=== PATIENT | male | born 2000 | race Two or more races ===

== ENCOUNTER 2023-10-26 17:13 | Inpatient (IN) | payer MEDICAID, OTHER ==
[~2023-10-26] VITALS: Ht 167.6 cm; Wt 98.2 kg
[2023-10-26 18:53] LABS: Urine Epithelial Cast None Seen /hpf (<5)
[2023-10-26 19:10] LABS: Basophils # (auto) 0 10 ^3/uL (0-0.2); Basophils % (auto) 0.1 % (0.0-2.0); Eosinophils # (auto) 0 10 ^3/uL (0-0.8); Hematocrit 52.8 % (41.0-53.0); Hemoglobin 17.7 g/dL (13.5-17.5); Lymphocytes # (auto) 1.1 10 ^3/uL (0.4-5.4); Lymphocytes % (auto) 6.4 % (10.0-50.0); Mean Corpuscular Hemoglobin 28.2 pg (28.0-32.0); Mean Corpuscular Hgb Conc. 33.4 g/dL (32.0-36.0); Mean Corpuscular Volume 84.4 fL (80.0-100.0); Monocytes # (auto) 0.8 10 ^3/uL (0-1.3); Monocytes % (auto) 4.5 % (0.0-12.0); Neutrophils # (auto) 14.9 10 ^3/uL (1.6-8.6); Nucleated Red Blood Cells % 0.4 %; Red Blood Cells 6.26 10^6/uL (4.5-5.90); Red Cell Distribution Width 14.4 % (11.8-14.3); White Blood Cell 16.7 10^3/uL (4.4-10.8)
[2023-10-26 19:30] LABS: Alanine Aminotransferase 22 U/L (7-40); Albumin 4.9 g/dL (3.2-4.8); Alkaline Phosphatase 75 U/L (46-116); Amylase 50 U/L (30-118); Anion Gap 6 (5-15); Aspartate Aminotransferase 20 U/L (13-40); BUN/Creatinine Ratio 7.8 (10.0-20.0); Bilirubin, Total 1.4 mg/dL (0.2-1.0); Blood Urea Nitrogen 9 mg/dL (9-23); Calcium 9.5 mg/dL (8.7-10.4); Carbon Dioxide 26 mmol/L (20-30); Chloride 102 mmol/L (98-107); Glucose 104 mg/dL (74-106); Lipase 32 U/L (12-53); Potassium 4.2 mmol/L (3.5-5.1); Sodium 134 mmol/L (136-145); Total Protein 8.1 g/dL (5.7-8.2)
[2023-10-26 19:34] LABS: Urine Bacteria NONE SEEN /hpf (None Seen); Urine Blood Negative /uL (Negative); Urine Clarity Clear (Clear); Urine Color Yellow (Yellow); Urine Mucus FEW (None Seen); Urine Protein, UAD 1+ (Negative); Urine Specific Gravity 1.022 (1.001-1.035); Urine Urobilinogen Normal (Negative); Urine WBC 2 /hpf (0 - 3); Urine pH 6.5 (5.0-8.0)
[2023-10-26 19:39] LABS: Amphetamine Screen, Urine Neg (NEGATIVE); Barbiturate Scree,Urine Neg (NEGATIVE); Benzodiazephine Screen, Urine Neg (NEGATIVE); Cannabinoid Screen, Urine Neg (NEGATIVE); Cocaine Screen, Urine Pos (NEGATIVE); Opiate Scree,Urine Neg (NEGATIVE); Phencyclidine Screen, Urine Neg (NEGATIVE)
[2023-10-26] MEDS ORDERED: SODIUM CHLORIDE 0.9% 1,000 ML IV ONE (19:45)
[2023-10-26] MEDS ORDERED: ONDANSETRON HCL 4 MG/2 ML VIAL IV ONE (19:45)
[2023-10-26] MEDS ORDERED: MORPHINE SULFATE INJ 2 MG/ml SYRG IV ONE (19:45)
[2023-10-26] MEDS ORDERED: PIPERACILLIN-TAZOB 3.375GM 100 ML IV ONE ×2 (20:00→23:06)
[2023-10-26] MEDS: PIPERACILLIN-TAZOB 3.375GM 100 ML IV SCH (22:45)
[2023-10-26] MEDS ORDERED: D5W/LACTATED RINGERS 1,000 ML IV ONE (22:45)
[2023-10-26] MEDS ORDERED: DEXTROSE (50%) 50ML SYRG IV PRN (22:45)
[2023-10-26] MEDS ORDERED: MORPHINE SULFATE INJ 2 MG/ml SYRG ONE (23:06)
[2023-10-26] MEDS ORDERED: ONDANSETRON HCL 4 MG/2 ML VIAL ONE (23:06)
[2023-10-27] VITALS (9 sets, daily range): BP systolic 102–116; BP diastolic 58–72; PULSE 68–126; RESP 16–32; TEMP 98.2–98.7; O2SAT 97–100
[2023-10-27] MEDS: ACCU-CHEK COMFORT CURVE STRIP VI SCH ×4 (02:15→17:48)
[2023-10-27] MEDS: InsuLIN REG 1unit/0.01ml Soln (100units/ml) SC SCH ×4 (02:15→17:47)
[2023-10-27] MEDS: ACETAMINOPHEN 325 MG TAB PO PRN (03:02)
[2023-10-27] MEDS ORDERED: ACETAMINOPHEN 325 MG TAB PO ONE (03:02)
[2023-10-27] MEDS ORDERED: PIPERACILLIN-TAZOB 3.375GM 100 ML IV ONE ×4 (05:12→23:04)
[2023-10-27] MEDS: PIPERACILLIN-TAZOB 3.375GM 100 ML IV SCH ×4 (05:12→23:10)
[2023-10-27] MEDS: SODIUM CHLOR 0.9% PF (SALINE LOCK) 10ML VIAL/SYR IV SCH ×3 (06:00→23:07)
[2023-10-27 08:01] LABS: Hematocrit 44.6 % (41.0-53.0); Hemoglobin 14.8 g/dL (13.5-17.5); Mean Corpuscular Hemoglobin 27.9 pg (28.0-32.0); Mean Corpuscular Hgb Conc. 33.1 g/dL (32.0-36.0); Mean Corpuscular Volume 84.4 fL (80.0-100.0); Red Blood Cells 5.29 10^6/uL (4.5-5.90); Red Cell Distribution Width 14.5 % (11.8-14.3)
[2023-10-27 08:13] LABS: Basophils % (manual) 0 (0.0-2.0); Blast Cells 0; Eosinophils % (manual) 0 (0-7); Metamyelocytes % 0; Promyelocytes % 0; Reactive Lymphocytes 0
[2023-10-27] MEDS: SODIUM CHLORIDE 0.9% 1,000 ML IV SCH ×4 (08:15→23:07)
[2023-10-27] MEDS ORDERED: SODIUM CHLORIDE 0.9% 1,000 ML IV ONE ×2 (08:15)
[2023-10-27] MEDS ORDERED: SODIUM CHLORIDE 0.9% 1,000 ML IV SCH (08:15)
[2023-10-27 08:18] LABS: Alanine Aminotransferase 19 U/L (7-40); Alkaline Phosphatase 49 U/L (46-116); Anion Gap 8 (5-15); Aspartate Aminotransferase 15 U/L (13-40); BUN/Creatinine Ratio 8.9 (10.0-20.0); Blood Urea Nitrogen 11 mg/dL (9-23); Calcium 8.9 mg/dL (8.5-10.1); Carbon Dioxide 25 mmol/L (20-30); Chloride 101 mmol/L (98-107); Glucose 125 mg/dL (74-106); Potassium 3.8 mmol/L (3.5-5.1); Sodium 134 mmol/L (136-145)
[2023-10-27 08:19] LABS: Bilirubin, Total 1.6 mg/dL (0.2-1.0); Total Protein 6.5 g/dL (5.7-8.2)
[2023-10-27 08:43] LABS: Band Neutrophils % (manual) 21; Lymphocytes % (manual) 7 (10.0-50.0); Monocytes % (manual) 8 (0-12); Myelocytes % 2; Platelet Estimate Adequate
[2023-10-27] MEDS ORDERED: SUCCINYLCHOLINE CHLORIDE 20 MG/ML 10ML VIAL IV ONE (13:23)
[2023-10-27] MEDS ORDERED: ROCURONIUM 10MG/ML 10ML VIAL IV ONE (13:23)
[2023-10-27] MEDS ORDERED: fentaNYL CITRATE 100 MCG/2 ML VL ONE ×2 (13:54→15:08)
[2023-10-27] MEDS ORDERED: PROPOFOL 10 MG/ML 20 ML IV ONE (13:56)
[2023-10-27] MEDS ORDERED: DexAMETHasone SOD PHOS 10MG/1ML VIAL INJ ONE (14:07)
[2023-10-27] MEDS ORDERED: ONDANSETRON HCL 4 MG/2 ML VIAL ONE (14:07)
[2023-10-27] MEDS ORDERED: MEPERIDINE HCL (25 MG/ML) 1ML VIAL ONE ×2 (15:05→15:29)
[2023-10-27] MEDS ORDERED: SUGAMMADEX 200mg/2ml Vial (100MG/ML) IV ONE (15:23)
[2023-10-27] MEDS ORDERED: ROPIVACAINE 0.5% (5MG/ML) 20ML AMPULE IJ ONE (15:32)
[2023-10-27] MEDS ORDERED: ONDANSETRON HCL 4 MG/2 ML VIAL IV PRN (16:15)
[2023-10-27] MEDS ORDERED: HYDROmorphone HCL 2 MG/ML VL/or syr IV PRN (16:15)
[2023-10-27] MEDS ORDERED: MEPERIDINE HCL (25 MG/ML) 1ML VIAL IV PRN (16:15)
[2023-10-27] MEDS ORDERED: InsuLIN REG 1unit/0.01ml Soln (100units/ml) ONE (17:39)
[2023-10-28] VITALS (7 sets, daily range): BP systolic 107–127; BP diastolic 60–89; PULSE 76–94; RESP 16–21; TEMP 98.1–99.6; O2SAT 95–100
[2023-10-28] MEDS: ACCU-CHEK COMFORT CURVE STRIP VI SCH ×4 (01:05→17:52)
[2023-10-28] MEDS: InsuLIN REG 1unit/0.01ml Soln (100units/ml) SC SCH ×4 (01:05→17:55)
[2023-10-28] MEDS: SODIUM CHLORIDE 0.9% 1,000 ML IV SCH ×2 (01:45→11:46)
[2023-10-28] MEDS: PIPERACILLIN-TAZOB 3.375GM 100 ML IV SCH ×4 (04:13→22:58)
[2023-10-28] MEDS: SODIUM CHLOR 0.9% PF (SALINE LOCK) 10ML VIAL/SYR IV SCH ×3 (06:00→22:00)
[2023-10-28 06:37] LABS: Basophils # (auto) 0 10 ^3/uL (0-0.2); Basophils % (auto) 0.1 % (0.0-2.0); Eosinophils # (auto) 0 10 ^3/uL (0-0.8); Hematocrit 40.4 % (41.0-53.0); Hemoglobin 13.7 g/dL (13.5-17.5); Lymphocytes % (auto) 5.9 % (10.0-50.0); Mean Corpuscular Hemoglobin 28.8 pg (28.0-32.0); Mean Corpuscular Hgb Conc. 33.8 g/dL (32.0-36.0); Monocytes # (auto) 0.6 10 ^3/uL (0-1.3); Monocytes % (auto) 3.6 % (0.0-12.0); Neutrophils # (auto) 14.9 10 ^3/uL (1.6-8.6); Neutrophils % (auto) 90.4 % (37.0-80.0); Red Blood Cells 4.76 10^6/uL (4.5-5.90); Red Cell Distribution Width 14.5 % (11.8-14.3); White Blood Cell 16.5 10^3/uL (4.4-10.8)
[2023-10-28 06:43] LABS: Calcium 8.9 mg/dL (8.7-10.4); Chloride 106 mmol/L (98-107); Potassium 3.7 mmol/L (3.5-5.1); Sodium 137 mmol/L (136-145)
[2023-10-28 06:44] LABS: Anion Gap 6 (5-15); Carbon Dioxide 25 mmol/L (20-30)
[2023-10-28 06:49] LABS: BUN/Creatinine Ratio 9.1 (10.0-20.0); Blood Urea Nitrogen 10 mg/dL (9-23); Glucose 132 mg/dL (74-106)
[2023-10-29] MEDS: ACCU-CHEK COMFORT CURVE STRIP VI SCH ×2 (00:15→05:22)
[2023-10-29 05:00] VITALS: BP 121/83; PULSE 60; RESP 18; TEMP 98.1; O2SAT 98
[2023-10-29] MEDS: SODIUM CHLORIDE 0.9% 1,000 ML IV SCH (05:21)
[2023-10-29] MEDS: SODIUM CHLOR 0.9% PF (SALINE LOCK) 10ML VIAL/SYR IV SCH ×3 (05:22→22:48)
[2023-10-29] MEDS: InsuLIN REG 1unit/0.01ml Soln (100units/ml) SC SCH ×2 (05:22)
[2023-10-29] MEDS: PIPERACILLIN-TAZOB 3.375GM 100 ML IV SCH ×4 (06:30→22:49)
[2023-10-29 06:51] LABS: Anion Gap 6 (5-15); Carbon Dioxide 27 mmol/L (20-30); Chloride 108 mmol/L (98-107); Potassium 3.9 mmol/L (3.5-5.1); Sodium 141 mmol/L (136-145)
[2023-10-29 06:53] LABS: Calcium 9.1 mg/dL (8.5-10.1)
[2023-10-29 06:57] LABS: BUN/Creatinine Ratio 12.4 (10.0-20.0); Blood Urea Nitrogen 12 mg/dL (9-23); Glucose 93 mg/dL (74-106)
[2023-10-29 07:05] LABS: Basophils # (auto) 0 10 ^3/uL (0-0.2); Basophils % (auto) 0.1 % (0.0-2.0); Eosinophils # (auto) 0 10 ^3/uL (0-0.8); Hematocrit 37.9 % (41.0-53.0); Hemoglobin 12.5 g/dL (13.5-17.5); Lymphocytes # (auto) 1.8 10 ^3/uL (0.4-5.4); Mean Corpuscular Hemoglobin 28.2 pg (28.0-32.0); Mean Corpuscular Volume 85.4 fL (80.0-100.0); Monocytes % (auto) 6.2 % (0.0-12.0); Neutrophils # (auto) 12.5 10 ^3/uL (1.6-8.6); Neutrophils % (auto) 81.7 % (37.0-80.0); Red Blood Cells 4.44 10^6/uL (4.5-5.90); Red Cell Distribution Width 14.7 % (11.8-14.3); White Blood Cell 15.3 10^3/uL (4.4-10.8)
[2023-10-29 09:00] VITALS: BP 121/59; PULSE 57; RESP 18; TEMP 97.9; O2SAT 96
[2023-10-29 09:14] LABS: Hepatitis B Surface Antigen Negative (Negative)
[2023-10-29 09:36] LABS: Hepatitis C Antibody Negative (Negative)
[2023-10-29 13:00] VITALS: BP 117/66; PULSE 80; RESP 18; TEMP 97.5; O2SAT 96
[2023-10-29 17:00] VITALS: BP 113/69; PULSE 65; RESP 18; TEMP 98.1; O2SAT 97
[2023-10-29] MEDS: ACETAMINOPHEN 325 MG TAB PO PRN (20:08)
[2023-10-29 23:14] VITALS: BP 115/70; PULSE 89; RESP 18; TEMP 98.3; O2SAT 97
[2023-10-30] MEDS: HYDROcodone-ACET 5/325MG TAB PO PRN (03:45)
[2023-10-30] MEDS: SODIUM CHLOR 0.9% PF (SALINE LOCK) 10ML VIAL/SYR IV SCH ×3 (04:58→21:43)
[2023-10-30] MEDS: PIPERACILLIN-TAZOB 3.375GM 100 ML IV SCH ×4 (05:02→23:06)
[2023-10-30 05:14] VITALS: BP 120/75; PULSE 84; RESP 18; TEMP 97.9; O2SAT 97
[2023-10-30 06:30] LABS: Basophils # (auto) 0 10 ^3/uL (0-0.2); Eosinophils # (auto) 0 10 ^3/uL (0-0.8); Eosinophils % (auto) 0.1 % (0.0-7.0); Hematocrit 45.2 % (41.0-53.0); Lymphocytes # (auto) 2.2 10 ^3/uL (0.4-5.4); Lymphocytes % (auto) 18.5 % (10.0-50.0); Mean Corpuscular Hemoglobin 28.4 pg (28.0-32.0); Mean Corpuscular Hgb Conc. 33.2 g/dL (32.0-36.0); Mean Corpuscular Volume 85.4 fL (80.0-100.0); Monocytes # (auto) 1.3 10 ^3/uL (0-1.3); Monocytes % (auto) 10.6 % (0.0-12.0); Neutrophils # (auto) 8.6 10 ^3/uL (1.6-8.6); Neutrophils % (auto) 70.8 % (37.0-80.0); Red Blood Cells 5.29 10^6/uL (4.5-5.90); Red Cell Distribution Width 14.8 % (11.8-14.3); White Blood Cell 12.1 10^3/uL (4.4-10.8)
[2023-10-30 06:41] LABS: Chloride 104 mmol/L (98-107); Potassium 3.5 mmol/L (3.5-5.1); Sodium 137 mmol/L (136-145)
[2023-10-30 06:42] LABS: Anion Gap 8 (5-15); Carbon Dioxide 25 mmol/L (20-30)
[2023-10-30 06:47] LABS: Glucose 79 mg/dL (74-106)
[2023-10-30 06:48] LABS: BUN/Creatinine Ratio 7.6 (10.0-20.0); Blood Urea Nitrogen 9 mg/dL (9-23)
[2023-10-30 09:23] VITALS: BP 116/68; PULSE 93; RESP 18; TEMP 99.1; O2SAT 96
[2023-10-30] MEDS: ACETAMINOPHEN 325 MG TAB PO PRN ×2 (10:45→22:25)
[2023-10-30] MEDS ORDERED: IOHEXOL 300 MG/ML 100ML BOTTLE IJ ONE (11:50)
[2023-10-30 16:39] VITALS: BP 108/62; PULSE 100; RESP 16; TEMP 96.3; O2SAT 97
[2023-10-30 22:00] VITALS: BP 119/75; PULSE 52; RESP 18; TEMP 98.8; O2SAT 100
[2023-10-31] MEDS: ONDANSETRON HCL 4 MG/2 ML VIAL IV PRN ×3 (01:53→18:00)
[2023-10-31] MEDS: PIPERACILLIN-TAZOB 3.375GM 100 ML IV SCH (04:44)
[2023-10-31] MEDS: SODIUM CHLOR 0.9% PF (SALINE LOCK) 10ML VIAL/SYR IV SCH ×3 (04:47→21:38)
[2023-10-31 05:00] VITALS: BP 124/76; PULSE 98; RESP 17; TEMP 99.6; O2SAT 100
[2023-10-31 05:39] LABS: Basophils # (auto) 0 10 ^3/uL (0-0.2); Basophils % (auto) 0.1 % (0.0-2.0); Eosinophils # (auto) 0.2 10 ^3/uL (0-0.8); Eosinophils % (auto) 1.4 % (0.0-7.0); Hematocrit 43.7 % (41.0-53.0); Hemoglobin 14.5 g/dL (13.5-17.5); Lymphocytes # (auto) 2.4 10 ^3/uL (0.4-5.4); Lymphocytes % (auto) 13.9 % (10.0-50.0); Mean Corpuscular Hemoglobin 28.2 pg (28.0-32.0); Mean Corpuscular Hgb Conc. 33.2 g/dL (32.0-36.0); Mean Corpuscular Volume 84.8 fL (80.0-100.0); Monocytes # (auto) 1.9 10 ^3/uL (0-1.3); Monocytes % (auto) 10.9 % (0.0-12.0); Neutrophils # (auto) 12.6 10 ^3/uL (1.6-8.6); Neutrophils % (auto) 73.7 % (37.0-80.0); Red Blood Cells 5.16 10^6/uL (4.5-5.90); Red Cell Distribution Width 14.7 % (11.8-14.3); White Blood Cell 17.1 10^3/uL (4.4-10.8)
[2023-10-31 09:00] VITALS: BP 122/73; PULSE 94; RESP 16; TEMP 98.7; O2SAT 96
[2023-10-31] MEDS: MORPHINE SULFATE INJ 2 MG/ml SYRG IV PRN ×2 (11:51→18:01)
[2023-10-31 13:19] VITALS: BP 132/76; PULSE 95; RESP 16; TEMP 98.5; O2SAT 97
[2023-10-31] MEDS: MEROPENEM 1GM IVPB 100 ML IV SCH ×2 (14:48→21:38)
[2023-10-31 17:04] VITALS: BP 123/72; PULSE 96; RESP 20; TEMP 98.6; O2SAT 98
[2023-10-31 22:00] VITALS: BP 122/79; PULSE 87; RESP 18; TEMP 98.3; O2SAT 99
[2023-11-01] VITALS (7 sets, daily range): BP systolic 117–121; BP diastolic 63–77; PULSE 77–95; RESP 17–18; TEMP 98.1–98.5; O2SAT 96–98
[2023-11-01] MEDS: MORPHINE SULFATE INJ 2 MG/ml SYRG IV PRN ×3 (02:39→18:21)
[2023-11-01] MEDS: SODIUM CHLOR 0.9% PF (SALINE LOCK) 10ML VIAL/SYR IV SCH ×3 (06:14→22:58)
[2023-11-01] MEDS: MEROPENEM 1GM IVPB 100 ML IV SCH ×3 (06:14→23:01)
[2023-11-01 12:29] LABS: Anion Gap 10 (5-15); Carbon Dioxide 24 mmol/L (20-30); Chloride 102 mmol/L (98-107); Potassium 3.8 mmol/L (3.5-5.1); Sodium 136 mmol/L (136-145)
[2023-11-01 12:30] LABS: Calcium 8.6 mg/dL (8.5-10.1)
[2023-11-01 12:32] LABS: Basophils # (auto) 0 10 ^3/uL (0-0.2); Basophils % (auto) 0.1 % (0.0-2.0); Eosinophils # (auto) 0.2 10 ^3/uL (0-0.8); Eosinophils % (auto) 1.5 % (0.0-7.0); Hematocrit 43.1 % (41.0-53.0); Hemoglobin 14.3 g/dL (13.5-17.5); Lymphocytes # (auto) 2.7 10 ^3/uL (0.4-5.4); Lymphocytes % (auto) 18.3 % (10.0-50.0); Mean Corpuscular Hemoglobin 28.2 pg (28.0-32.0); Mean Corpuscular Hgb Conc. 33.2 g/dL (32.0-36.0); Mean Corpuscular Volume 84.9 fL (80.0-100.0); Monocytes # (auto) 1.5 10 ^3/uL (0-1.3); Monocytes % (auto) 10.4 % (0.0-12.0); Neutrophils # (auto) 10.1 10 ^3/uL (1.6-8.6); Neutrophils % (auto) 69.7 % (37.0-80.0); Nucleated Red Blood Cells % 0.1 %; Red Blood Cells 5.07 10^6/uL (4.5-5.90); Red Cell Distribution Width 14.8 % (11.8-14.3); White Blood Cell 14.4 10^3/uL (4.4-10.8)
[2023-11-01 12:35] LABS: Blood Urea Nitrogen 11 mg/dL (9-23); Glucose 77 mg/dL (74-106)
[2023-11-02] MEDS: MORPHINE SULFATE INJ 2 MG/ml SYRG IV PRN ×2 (02:30→08:35)
[2023-11-02 05:00] VITALS: BP 115/65; PULSE 81; RESP 16; TEMP 98.2; O2SAT 97
[2023-11-02] MEDS: MEROPENEM 1GM IVPB 100 ML IV SCH ×3 (05:59→22:09)
[2023-11-02] MEDS: SODIUM CHLOR 0.9% PF (SALINE LOCK) 10ML VIAL/SYR IV SCH ×3 (06:01→22:05)
[2023-11-02 08:00] VITALS: PULSE 78; RESP 20; O2SAT 96
[2023-11-02] MEDS: ONDANSETRON HCL 4 MG/2 ML VIAL IV PRN (09:23)
[2023-11-02 09:30] VITALS: BP 101/61; PULSE 78; RESP 20; TEMP 98.5; O2SAT 96
[2023-11-02 12:59] VITALS: BP 109/67; PULSE 77; RESP 20; TEMP 98.2; O2SAT 97
[2023-11-02 16:07] VITALS: BP 100/67; PULSE 83; RESP 19; TEMP 97.9; O2SAT 97
[2023-11-02] MEDS: HYDROcodone-ACET 5/325MG TAB PO PRN (17:26)
[2023-11-02 22:00] VITALS: BP 120/67; PULSE 62; RESP 20; TEMP 97.7; O2SAT 97
[2023-11-03] MEDS: HYDROcodone-ACET 5/325MG TAB PO PRN ×2 (03:49→11:56)
[2023-11-03 05:00] VITALS: BP 124/69; PULSE 70; RESP 20; TEMP 98.3; O2SAT 99
[2023-11-03] MEDS: MEROPENEM 1GM IVPB 100 ML IV SCH ×2 (05:50→14:39)
[2023-11-03] MEDS: SODIUM CHLOR 0.9% PF (SALINE LOCK) 10ML VIAL/SYR IV SCH ×2 (05:50→14:40)
[2023-11-03 08:00] VITALS: PULSE 58; O2SAT 98
[2023-11-03 10:33] VITALS: BP 116/66; PULSE 58; RESP 17; TEMP 98.7; O2SAT 98
[2023-11-03 13:34] VITALS: BP 104/68; PULSE 73; RESP 17; TEMP 98.3; O2SAT 97
[2023-11-03] MEDS ORDERED: HYDR-4902 PO (13:51)
[2023-11-03] MEDS ORDERED: MET500T PO (13:51)
[2023-11-03] MEDS ORDERED: CIPR-173 PO (13:51)
[2023-11-03 17:05] VITALS: BP 133/75; PULSE 69; RESP 17; TEMP 98.7; O2SAT 98
[2023-11-03 17:15] VITALS: BP 133/75; PULSE 69; RESP 17; TEMP 98.2; O2SAT 98
== END 2023-11-03 18:45 | disposition home health service (06) | DRG 710 ==
LOC: ER 17:13 → OVERFLOW 22:44 → CENTRAL 10-27 08:48
PROVIDERS: ADMIT Internal Medicine; ATTEND Internal Medicine
PROC: 0DTJ4ZZ Resection of Appendix, Percutaneous Endoscopic Approach (ICD-10-PCS; principal; 2023-10-27 13:57)
DX: A41.9 Sepsis, unspecified organism (principal); K35.32 Acute appendicitis with perforation, localized peritonitis, and gangrene, without abscess; F14.10 Cocaine abuse, uncomplicated
CPT/HCPCS: 36415; 74176; 74178; 80048; 80053; 80307; 81001; 82150; 82962; 83605; 83690; 85007; 85025; 85027; 86803; 86850; 86900; 86901; 87040; 87340; 96361; 96365; 96375; G0378; J0330; J1100; J1815; J2185; J2405; J2543; J2704